=== PATIENT | male | born 1955 | race Caucasian/White ===

== ENCOUNTER 2019-06-10 12:07 | Day surgery (SDC) | payer BC ==
[2019-06-10] MEDS ORDERED: LIDOCAINE 2% MDV (20MG/ML) 20ML VIAL IV ONE (12:08)
[2019-06-10] MEDS ORDERED: PROPOFOL 10 MG/ML VIAL IV ONE (12:08)
--- NOTE | 2019-06-11 06:50 | Operative Note ---
OPERATION: COLONOSCOPY with cold snare polypectomy x2. PREOPERATIVE DIAGNOSIS: Personal history of colon polyps. POSTOPERATIVE DIAGNOSES: 1. Ascending colon polyp. 2. Sigmoid polyp. 3. Sigmoid diverticulosis. PROCEDURE: After informed consent was obtained from the patient, he was placed in the left lateral decubitus position in the endoscopy suite, sedated and monitored by the department of anesthesia. Digital rectal examination was unremarkable. A well-lubricated [id number] colonoscope was inserted into the rectum and advanced to the cecum. The cecum, cecal bulb, ileocecal valve, and appendiceal orifice were unremarkable. The ascending colon revealed a sessile polyp approximately 1 cm in length. It was removed in piecemeal fashion with a cold snare. Minimal bleeding was noted at the site. The remainder of the ascending, transverse colon, and descending colon were unremarkable. The sigmoid colon demonstrated diverticulosis of [id number] severity. There was also noted to be a 5-6 mm sessile polyp in the sigmoid colon which was removed with a cold snare. The rectum was unremarkable in forward and J-turn views. The endoscope was straightened, the rectal ampulla deflated, and the endoscope was removed. RECOMMENDATIONS: I would suggest the patient follow a high-fiber diet. He will require repeat colonoscopy in 3-5 years pending tissue histology. As always, thank you for allowing me to participate in the healthcare of your patients. KARL
== END 2019-06-10 14:20 | disposition home or self-care (01) ==
LOC: HOP 12:07
PROVIDERS: ATTEND Internal Medicine Gastroenterology
DX: Z12.11 Encounter for screening for malignant neoplasm of colon (principal); Z86.010 Personal history of colon polyps; D12.2 Benign neoplasm of ascending colon; D12.5 Benign neoplasm of sigmoid colon; K57.30 Diverticulosis of large intestine without perforation or abscess without bleeding; I10 Essential (primary) hypertension